=== PATIENT | female | born 1990 | race Caucasian/White ===

== ENCOUNTER 2018-10-06 20:01 | Inpatient (IN) ==
[2018-10-06] MEDS ORDERED: fentaNYL Citrate Inj 100 MCG/2 ML Ampul IV.PUSH PRN ×4 (20:48→20:50)
[2018-10-06] MEDS ORDERED: Sod Chloride 0.9% Inj 1,000 ML IV.CONT PRN ×2 (20:48→20:50)
[2018-10-06] MEDS ORDERED: Sodium Chlor 0.9% Inj 500 ML IV.SIG PRN ×2 (20:48→20:50)
[2018-10-06] MEDS ORDERED: Naloxone Inj 0.4 MG/ML Vial IV.PUSH PRN ×2 (20:48→20:50)
--- NOTE | 2018-10-06 20:48 | P.HPOB ---
History of Present Illness Service: Labor and delivery Primary Care Physician: NOT REQUIRED Chief Complaint: 37 EGA elevated BPs History of Present Illness: 28 yo swf at 37 0/7 weeks to L & D after told to come in for induction by Dr. peterson. BP in office elevated. Told protein in urine. Has had several [facility] evaluations for this Labs historically normal. Checked on admission and arom clear. BP pending No PTL, GDM. History of BPD placed on ability and zoloft this after reviewing risk/benefit ratio. GFM. surveilance in office has been reassuring. Much stress due to toxic FOB. GBS+ Weeks Gestation:: 37 Para: 0 - Inpatient Certification I certify that the inpatient services were ordered in accordance with Medicare regulations governing the order. This includes certification that hospital inpatient services are reasonable and necessary and in the case of services not specified as inpatient-only under 42 CFR 419.22(n), that they are appropriately provided as inpatient services in accordance to with the 2-midnight benchmark under 43 CFR 412.3(e) Estimated Total Length of Stay (Days): 3 Plans for Post Hospital Care: Home Review of Systems All other systems reviewed negative except as stated in HPI PMFSH - History History Provided By: Patient - Medical / Surgical Hx Neg / Unobtainable Medical Problems Denied: Yes - Social History I have reviewed the patient's Social History: Yes - Tobacco History Smoking Status: Never smoker Medications and Allergies Allergies Allergy/AdvReac Type Severity Reaction Status Date / Time No Known Allergies Allergy Unknown Uncoded 04/06/09 12:34 Exam - Constitutional mild distress - Routine HEENT Exam Head: Present: normocephalic Eye: Present: PERRL ENT: Present: mucous membranes moist - Routine Neck Exam Present: full ROM - Routine Respiratory Exam Present: CTA bilaterally - Routine Cardiovascular Exam Present: RRR - Routine Abdominal Exam Present: soft - Routine Exam Perineum Description: Intact - Routine Extremities Exam Present: edema - Routine Neurological Exam Present: alert, oriented X3 Caprini VTE Risk Assessment Caprini VTE Risk Assessment: No/Low Risk (score <= 1) Caprini Risk Assessment Model: Point Value = 1 Point Value = 2 Point Value = 3 Point Value = 5 Age 41-60 Minor surgery BMI > 25 kg/m2 Swollen legs Varicose veins or History of unexplained or recurrent spontaneous Oral contraceptives or hormone replacement Sepsis (< 1 month) Serious lung disease, including pneumonia (< 1 month) Abnormal pulmonary function Acute myocardial infarction Congestive heart failure (< 1 month) History of inflammatory bowel disease Medical patient at bed rest Age 61-74 Arthroscopic surgery Major open surgery (> 45 min) Laparoscopic surgery (> 45 min) Malignancy Confined to bed (> 72 hours) Immobilizing plaster cast Central venous access Age >= 75 History of VTE Family history of VTE Factor V Leiden Prothrombin [id number] Lupus anticoagulant Anticardiolipin antibodies Elevated serum homocysteine Heparin-induced thrombocytopenia Other congenital or acquired thrombophilia Stroke (< 1 month) Elective arthroplasty Hip, pelvis, or leg fracture Acute spinal cord injury (< 1 month) Prophylaxis Regimen: Total Risk Factor Score Risk Level Prophylaxis Regimen 0-1 Low Early ambulation 2 Moderate Order ONE of the following: *Sequential Compression Device (SCD) *Heparin 5000 units SQ BID 3-4 Higher Order ONE of the following medications: *Heparin 5000 units SQ TID *Enoxaparin/Lovenox 40 mg SQ daily (WT < 150 kg, CrCl > 30 mL/min) *Enoxaparin/Lovenox 30 mg SQ daily (WT < 150 kg, CrCl > 10-29 mL/min) *Enoxaparin/Lovenox 30 mg SQ BID (WT < 150 kg, CrCl > 30 mL/min) AND/OR *Sequential Compression Device (SCD) 5 or more Highest Order ONE of the following medications: *Heparin 5000 units SQ TID (Preferred with Epidurals) *Enoxaparin/Lovenox 40 mg SQ daily (WT < 150 kg, CrCl > 30 mL/min) *Enoxaparin/Lovenox 30 mg SQ daily (WT < 150 kg, CrCl > 10-29 mL/min) *Enoxaparin/Lovenox 30 mg SQ BID (WT < 150 kg, CrCl > 30 mL/min) AND *Sequential Compression Device (SCD) Assessment and Plan - Diagnosis (1) 37 weeks gestation of Code(s): Z3A.37 - 37 weeks gestation of Status: Acute (2) Pre-eclampsia Code(s): O14.90 - Unspecified pre-eclampsia, unspecified trimester Status: Acute - Plan evaluate for HELLP epidural and pitocin as needed anticipate
[2018-10-06] MEDS ORDERED: Oxytocin 30 Units/500ml Premix 30 UNITS/500 ML BAG IV.SIG PRN (20:49)
[2018-10-06] MEDS ORDERED: Oxytocin 30 Units/500ml Premix 30 UNITS/500 ML BAG IV.SIG ONE ×2 (20:50→21:15)
[2018-10-06] MEDS ORDERED: Citric Acid/Sodium Citrate Liq 30 ML UDC PO SCH ×2 (21:00)
[2018-10-06] MEDS ORDERED: Penicillin G Potassium Inj 5,000,000 UNIT in Sodium Chloride 0.9% Inj 100 ML IV.SIG ONE (21:15)
[2018-10-06] MEDS ORDERED: Lidocaine 1% Inj 50 ML Vial ONE (21:33)
[2018-10-06 21:49] LABS: Bacteria,Urine Occasional /hpf; Bilirubin,Urine Negative (Negative); Clarity,Urine Hazy (Clear); Color,Urine Yellow (Yellw/Straw); Glucose,Urine (UA) Negative (Negative); Leukocyte Esterase,Urine Small (Negative); Mucus,Urine Few /lpf (Occasional); Nitrite,Urine Negative (Negative); Specific Gravity,Urine 1.015 (1.002-1.035); Squamous Epithelial Cell,Urine 5 /hpf (0-5)
[2018-10-06 22:04] LABS: Baso % (Auto) 0.2 % (0.0-2.0); Eos # (Auto) 0.1 th/mm3 (0.0-0.4); Eos % (Auto) 0.7 % (0.0-4.0); Hematocrit 38.1 % (35.0-46.0); Hemoglobin 13.1 gm/dL (11.6-15.3); Lymph # (Auto) 2.7 th/mm3 (1.0-4.8); Lymph % (Auto) 17.7 % (9.0-44.0); Mean Corpuscular HGB Conc 34.3 % (32.0-36.0); Mean Corpuscular Hemoglobin 31.6 pg (27.0-34.0); Mean Corpuscular Volume 92.3 fL (80.0-100.0); Mean Platelet Volume 8.6 fL (7.0-11.0); Mono # (Auto) 1.1 th/mm3 (0.0-0.9); Mono % (Auto) 7.4 % (0.0-8.0); Neut # (Auto) 11.5 th/mm3 (1.8-7.7); Platelet Count 133 th/mm3 (150-450); Red Blood Count 4.13 mil/mm3 (4.00-5.30); Red Cell Distribution Width 12.8 % (11.6-17.2); White Blood Count 15.5 th/mm3 (4.0-11.0)
[2018-10-06] MEDS ORDERED: fentaNYL 2MCG-Bupiv 0.125% Epi 150 ML EPIDURAL ONE (22:28)
[2018-10-06] MEDS ORDERED: Lidocaine 2%/Epinephrine 1:200,000 PF 10 ML SDV ONE (22:33)
[2018-10-06] MEDS ORDERED: fentaNYL 2MCG-Bupiv 0.125% Epi 150 ML EPIDURAL PRN (23:10)
[2018-10-06] MEDS ORDERED: fentaNYL Citrate Inj 100 MCG/2 ML Ampul EPIDURAL ONE (23:10)
[2018-10-06 23:28] LABS: Amphetamine Urine With Conf Neg (Neg)
[2018-10-06 23:29] LABS: Benzodiazepine Urine With Conf Pos (Neg)
[2018-10-07] MEDS ORDERED: Penicillin G Potassium Inj 2,500,000 UNIT in Sodium Chlor 0.9% Inj 100 ML IV.SIG SCH (01:00)
--- NOTE | 2018-10-07 04:43 | P.OBDELI ---
Weeks Gestation: 37 Patient Started Active Labor: Yes Medical Induction of Labor: Yes Artificial Rupture of Membrane: Yes Anesthesia: Epidural Episiotomy: none Vaginal Delivery: Normal Presentation: Occiput anterior Nuchal Cord: None Delayed Cord Clamping (45 sec): Yes Placenta: Spontaneous delivery, Intact, 3 vessel cord, Cord pH Laceration: None Estimated blood loss (mL): 200 : Female Infant Female A Delivery Date: 10/07/18 Delivery Time: 04:43 score (1 min): 5 score (5 min): 7
[2018-10-07] MEDS ORDERED: Naloxone Inj 0.4 MG/ML Vial IV.PUSH PRN (04:44)
[2018-10-07] MEDS ORDERED: Zolpidem Tartrate 5 MG Tablet PO PRN (04:44)
[2018-10-07] MEDS ORDERED: Benzocaine 20% Top Spray 60 ML Can TOPICAL PRN (04:44)
[2018-10-07] MEDS ORDERED: Bisacodyl 10 MG Supp RECTAL PRN (04:44)
[2018-10-07] MEDS ORDERED: Acetaminophen 325 MG Tablet PO PRN (04:44)
[2018-10-07] MEDS ORDERED: Witch Hazel 50%/Glyderin 12.5% 40 Pad Jar RECTAL PRN (04:44)
[2018-10-07] MEDS ORDERED: Oxytocin 30 Units/500ml Premix 30 UNITS/500 ML BAG IV.CONT PRN (04:44)
[2018-10-07] MEDS: Prenatal Vit/Ca/Iron/Folic Acid Tablet PO SCH (09:13)
[2018-10-07] MEDS: Senna/Docusate Sodium 8.6/50 MG Tablet PO SCH ×2 (09:13→20:30)
[2018-10-07 10:15] LABS: Albumin 2.2 g/dL (3.4-5.0); Anion Gap 8 meq/L (5-15); Aspartate Aminotransferase 25 U/L (15-37); Blood Urea Nitrogen 7 mg/dL (7-18); Calcium 8.7 mg/dL (8.5-10.1); Carbon Dioxide 25.7 meq/L (21.0-32.0); Chloride 107 meq/L (98-107); Glomerular Filtration Rate 76 mL/min (>89); Glucose,Random 116 mg/dL (74-106); Potassium 3.4 meq/L (3.5-5.1); Sodium 141 meq/L (136-145)
[2018-10-07 10:16] LABS: Alanine Aminotransferase 16 U/L (10-53)
[2018-10-07 10:18] LABS: Alkaline Phosphatase 112 U/L (45-117); Total Protein 5.6 g/dL (6.4-8.2)
[2018-10-07] MEDS ORDERED: ALPRAZolam 0.25 MG Tablet PO PRN (11:46)
[2018-10-07] MEDS ORDERED: Measles/Mumps/Rubella Vaccine Inj 0.5 ML Vial SQ ONE (16:00)
[2018-10-07] MEDS ORDERED: Diphtheria/Tetanus/Pertussis Vaccine Inj 0.5 ML Syringe IM ONE (16:00)
[2018-10-07] MEDS: Sertraline 50 MG Tablet PO SCH (19:35)
[2018-10-07] MEDS: ARIPiprazole 5 MG Tablet PO SCH (19:35)
[2018-10-08] MEDS: Senna/Docusate Sodium 8.6/50 MG Tablet PO SCH ×2 (08:44→20:07)
[2018-10-08] MEDS: Prenatal Vit/Ca/Iron/Folic Acid Tablet PO SCH (08:44)
--- NOTE | 2018-10-08 11:06 | P.PNOB ---
Subjective Post day: 1 Interval history: PPD#1, s/p NVD 04:42 on 10/07/16. Doing well, Objective Vital Signs/I&O: Vital Signs 10/07/18 20:00 10/08/18 08:00 Temperature 98.2 F 97.8 F Pulse Rate 81 75 Respiratory Rate 18 20 Blood Pressure 129/76 138/83 Result Diagrams: 10/06/18 21:15 10/07/18 09:35 Objective Remarks: GENERAL: Well-nourished, well-developed patient. CARDIOVASCULAR: Regular rate and rhythm without murmurs, gallops, or rubs. RESPIRATORY: Breath sounds equal bilaterally. No accessory muscle use. ABDOMEN/GI: Abdomen soft, non-tender. Fundus: Firm, non-tender at umbilicus. GENITOURINARY: Light to moderate bleeding. EXTREMITIES: No cyanosis or edema, non-tender, without signs of DVT. Medications and IVs: Active Medications Acetaminophen (Tylenol) 650 mg PO Q4H PRN PRN Reason: PAIN SCALE 1 TO 2 Al Hydroxide/Mg Hydroxide (Milk Of Magnesia Liq) 30 ml PO Q12H PRN PRN Reason: Mild Constipation Alprazolam (Xanax) 0.25 mg PO Q4H PRN PRN Reason: ANXIETY Aripiprazole (Abilify) 5 mg PO DAILY@1999 [facility] [place] Last Admin: 10/07/18 19:35 Dose: 5 mg Benzocaine (Americaine 20% Top [place]) 1 spray TOPICAL Q4H PRN PRN Reason: For Perineum Discomfort Last Admin: 10/07/18 07:52 Dose: 1 spray Bisacodyl (Dulcolax Supp) 10 mg RECTAL DAILY PRN PRN Reason: SEVERE CONSITIPATION Calcium Carbonate (Tums Chew) 500 mg PO UNSCH PRN PRN Reason: INDIGESTION Last Admin: 10/07/18 16:14 Dose: 500 mg Citric Acid/Sodium Citrate (Sodium Citrate/Citric Acid Liq) 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 [facility] [place] Stop: 10/10/18 20:59 Fentanyl Citrate (Fentanyl Inj) 50 mcg IV.PUSH Q1H PRN PRN Reason: Pain Scale 3 - 5 Fentanyl Citrate (Fentanyl Inj) 100 mcg IV.PUSH Q1H PRN PRN Reason: PAIN SCALE 6 TO 10 Last Admin: 10/06/18 21:30 Dose: 100 mcg Lactated Ringer's (Lr 1000 Ml Inj) 1,000 mls @ 125 mls/hr IV.CONT .Q8H [facility] [place] Last Admin: 10/07/18 07:07 Dose: 125 mls/hr Lactated Ringer's (Lr 1000 Ml Inj) 1,000 mls @ 3,000 mls/hr IV.SIG UNSCH PRN PRN Reason: compromise or epidural Last Admin: 10/06/18 23:15 Dose: 3,000 mls/hr Sodium Chloride (Ns Inj) 500 mls @ 1,000 mls/hr IV.SIG UNSCH PRN PRN Reason: SEE LABEL COMMENTS Sodium Chloride (Ns Inj) 1,000 mls @ 100 mls/hr IV.CONT .Q10H PRN PRN Reason: SEE LABEL COMMENTS Oxytocin (Pitocin 30 Units/Ns 500 Ml Premix) 30 units in 500 mls @ 2 mls/hr IV.SIG TITRATE PRN; Protocol PRN Reason: For induction of labor Fentanyl/Bupivacaine/Sodium Chlor (Fentanyl 2 Mcg-Bupiv 0.125% Epi) 150 mls @ 12 mls/hr EPIDURAL PRN PRN PRN Reason: for Labor Pain Penicillin G Potassium 2,500, (000 unit/ Sodium Chloride) 100 mls @ 200 mls/hr IV.SIG Q4H [facility] [place] Last Admin: 10/07/18 01:10 Dose: 200 mls/hr Oxytocin (Pitocin 30 Units/Ns 500 Ml Premix) 30 units in 500 mls @ 100 mls/hr IV.CONT UNSCH PRN PRN Reason: Heavy bleeding Ibuprofen (Motrin) 800 mg PO Q8H PRN PRN Reason: For Cramping Last Admin: 10/08/18 08:44 Dose: 800 mg Lactulose (Lactulose Liq) 30 ml PO DAILY PRN PRN Reason: SEVERE CONSITIPATION Lidocaine HCl (Xylocaine 1% Inj) 0.1 ml I-DERMAL PRN PRN PRN Reason: For IV start Stop: 10/09/18 20:47 Lidocaine HCl (Xylocaine 1% Inj) 10 ml INFILTRATN PRN PRN PRN Reason: For episiotomy repair Stop: 10/08/18 20:47 Mineral Oil (Muri-Lube Oil) 10 ml TOPICAL PRN PRN PRN Reason: PRN perineal massage Naloxone HCl (Narcan Inj) 0.1 mg IV.PUSH Q2M PRN PRN Reason: for opiate reversal Naloxone HCl (Narcan Inj) 0.1 mg IV.PUSH Q2M PRN PRN Reason: for opiate reversal Ondansetron HCl (Zofran Odt) 4 mg PO Q6H PRN PRN Reason: NAUSEA OR VOMITING Vit/Calcium/Iron/Folic Ac (Stuartnatal Plus 3) 1 tab PO DAILY [facility] [place] Last Admin: 10/08/18 08:44 Dose: 1 tab Senna/Docusate Sodium (Sheree-Colace) 1 tab PO BID [facility] [place] Last Admin: 10/08/18 08:44 Dose: 1 tab Sennosides (Senokot) 17.2 mg PO Q12H PRN PRN Reason: Moderate Constipation Sertraline HCl (Zoloft) 50 mg PO DAILY@1999 [facility] [place] Last Admin: 10/07/18 19:35 Dose: 50 mg Sodium Chloride (Ns Flush) 2 ml IV.FLUSH BID [facility] [place] Last Admin: 10/08/18 08:44 Dose: Not Given Sodium Chloride (Ns Flush) 2 ml IV.FLUSH PRN PRN PRN Reason: FLUSH AFTER USING IV ACCESS Witch Leah/Glycerin (Tucks Pads) 1 applicatio RECTAL QID PRN PRN Reason: HEMORRHOIDS Last Admin: 10/07/18 07:52 Dose: 1 applicatio Zolpidem Tartrate (Ambien) 5 mg PO HS PRN PRN Reason: SLEEP Assessment and Plan - Diagnosis (1) 37 weeks gestation of Code(s): Z3A.37 - 37 weeks gestation of Status: Acute (2) Pre-eclampsia Code(s): O14.90 - Unspecified pre-eclampsia, unspecified trimester Status: Acute - Plan PPD#1, Doing well, stable, plan discharge for today. RTO in 1-2 weeks. Discharge Planning: today
[2018-10-08] MEDS ORDERED: Simethicone 125 MG Chew Tablet PO PRN (19:53)
[2018-10-08] MEDS: ARIPiprazole 5 MG Tablet PO SCH (20:07)
[2018-10-08] MEDS: Sertraline 50 MG Tablet PO SCH (20:07)
[2018-10-09 08:30] VITALS: BP 130/86; PULSE 89
[2018-10-09 08:31] VITALS: RESP 20; TEMP 98.9
--- NOTE | 2018-10-09 08:44 | P.PNOB ---
Subjective Post day: 2 Interval history: Doing well high anxiety no significant pain baby has tremors mom constipation Objective Vital Signs/I&O: Vital Signs 10/08/18 17:29 10/08/18 20:00 10/09/18 08:00 Temperature 98.1 F 98.5 F 98.9 F Pulse Rate 81 64 89 Respiratory Rate 17 18 20 Blood Pressure 130/86 130/76 130/86 Result Diagrams: 10/06/18 21:15 10/07/18 09:35 Objective Remarks: GENERAL: Well-nourished, well-developed patient. CARDIOVASCULAR: Regular rate and rhythm without murmurs, gallops, or rubs. RESPIRATORY: Breath sounds equal bilaterally. No accessory muscle use. ABDOMEN/GI: Abdomen soft, non-tender. Fundus: Firm, non-tender at umbilicus. GENITOURINARY: Light to moderate bleeding. EXTREMITIES: No cyanosis or edema, non-tender, without signs of DVT. Medications and IVs: Active Medications Acetaminophen (Tylenol) 650 mg PO Q4H PRN PRN Reason: PAIN SCALE 1 TO 2 Al Hydroxide/Mg Hydroxide (Milk Of Magnesia Liq) 30 ml PO Q12H PRN PRN Reason: Mild Constipation Last Admin: 10/08/18 17:12 Dose: 30 ml Alprazolam (Xanax) 0.25 mg PO Q4H PRN PRN Reason: ANXIETY Aripiprazole (Abilify) 5 mg PO DAILY@1999 [facility] Last Admin: 10/08/18 20:07 Dose: 5 mg Benzocaine (Americaine 20% Top [place]) 1 spray TOPICAL Q4H PRN PRN Reason: For Perineum Discomfort Last Admin: 10/07/18 07:52 Dose: 1 spray Bisacodyl (Dulcolax Supp) 10 mg RECTAL DAILY PRN PRN Reason: SEVERE CONSITIPATION Calcium Carbonate (Tums Chew) 500 mg PO UNSCH PRN PRN Reason: INDIGESTION Last Admin: 10/07/18 16:14 Dose: 500 mg Citric Acid/Sodium Citrate (Sodium Citrate/Citric Acid Liq) 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 [facility] Stop: 10/10/18 20:59 Fentanyl Citrate (Fentanyl Inj) 50 mcg IV.PUSH Q1H PRN PRN Reason: Pain Scale 3 - 5 Fentanyl Citrate (Fentanyl Inj) 100 mcg IV.PUSH Q1H PRN PRN Reason: PAIN SCALE 6 TO 10 Last Admin: 10/06/18 21:30 Dose: 100 mcg Lactated Ringer's (Lr 1000 Ml Inj) 1,000 mls @ 125 mls/hr IV.CONT .Q8H [facility] Last Admin: 10/07/18 07:07 Dose: 125 mls/hr Lactated Ringer's (Lr 1000 Ml Inj) 1,000 mls @ 3,000 mls/hr IV.SIG UNSCH PRN PRN Reason: compromise or epidural Last Admin: 10/06/18 23:15 Dose: 3,000 mls/hr Sodium Chloride (Ns Inj) 500 mls @ 1,000 mls/hr IV.SIG UNSCH PRN PRN Reason: SEE LABEL COMMENTS Sodium Chloride (Ns Inj) 1,000 mls @ 100 mls/hr IV.CONT .Q10H PRN PRN Reason: SEE LABEL COMMENTS Oxytocin (Pitocin 30 Units/Ns 500 Ml Premix) 30 units in 500 mls @ 2 mls/hr IV.SIG TITRATE PRN; Protocol PRN Reason: For induction of labor Fentanyl/Bupivacaine/Sodium Chlor (Fentanyl 2 Mcg-Bupiv 0.125% Epi) 150 mls @ 12 mls/hr EPIDURAL PRN PRN PRN Reason: for Labor Pain Penicillin G Potassium 2,500, (000 unit/ Sodium Chloride) 100 mls @ 200 mls/hr IV.SIG Q4H [facility] Last Admin: 10/07/18 01:10 Dose: 200 mls/hr Oxytocin (Pitocin 30 Units/Ns 500 Ml Premix) 30 units in 500 mls @ 100 mls/hr IV.CONT UNSCH PRN PRN Reason: Heavy bleeding Ibuprofen (Motrin) 800 mg PO Q8H PRN PRN Reason: For Cramping Last Admin: 10/08/18 17:11 Dose: 800 mg Lactulose (Lactulose Liq) 30 ml PO DAILY PRN PRN Reason: SEVERE CONSITIPATION Lidocaine HCl (Xylocaine 1% Inj) 0.1 ml I-DERMAL PRN PRN PRN Reason: For IV start Stop: 10/09/18 20:47 Mineral Oil (Muri-Lube Oil) 10 ml TOPICAL PRN PRN PRN Reason: PRN perineal massage Naloxone HCl (Narcan Inj) 0.1 mg IV.PUSH Q2M PRN PRN Reason: for opiate reversal Naloxone HCl (Narcan Inj) 0.1 mg IV.PUSH Q2M PRN PRN Reason: for opiate reversal Ondansetron HCl (Zofran Odt) 4 mg PO Q6H PRN PRN Reason: NAUSEA OR VOMITING Vit/Calcium/Iron/Folic Ac (Stuartnatal Plus 3) 1 tab PO DAILY [facility] Last Admin: 10/08/18 08:44 Dose: 1 tab Senna/Docusate Sodium (Sheree-Colace) 1 tab PO BID [facility] Last Admin: 10/08/18 20:07 Dose: 1 tab Sennosides (Senokot) 17.2 mg PO Q12H PRN PRN Reason: Moderate Constipation Sertraline HCl (Zoloft) 50 mg PO DAILY@1999 [facility] Last Admin: 10/08/18 20:07 Dose: 50 mg Simethicone (Phazyme Chew) 125 mg PO QID PRN PRN Reason: GAS PAINS Last Admin: 10/08/18 20:07 Dose: 125 mg Sodium Chloride (Ns Flush) 2 ml IV.FLUSH BID [facility] Last Admin: 10/08/18 22:56 Dose: Not Given Sodium Chloride (Ns Flush) 2 ml IV.FLUSH PRN PRN PRN Reason: FLUSH AFTER USING IV ACCESS Witch Leah/Glycerin (Tucks Pads) 1 applicatio RECTAL QID PRN PRN Reason: HEMORRHOIDS Last Admin: 10/07/18 07:52 Dose: 1 applicatio Zolpidem Tartrate (Ambien) 5 mg PO HS PRN PRN Reason: SLEEP Assessment and Plan - Diagnosis (1) 37 weeks gestation of Code(s): Z3A.37 - 37 weeks gestation of Status: Acute (2) Pre-eclampsia Code(s): O14.90 - Unspecified pre-eclampsia, unspecified trimester Status: Acute - Plan PPD#1, Doing well, stable, plan discharge for today. RTO in 1-2 weeks. PPD #2 doing well home today counseled in depth RTO 1 week Discharge Planning: today
[2018-10-09] MEDS: Prenatal Vit/Ca/Iron/Folic Acid Tablet PO SCH (09:01)
[2018-10-09] MEDS: Senna/Docusate Sodium 8.6/50 MG Tablet PO SCH (09:01)
== END 2018-10-09 11:55 | disposition home or self-care (01) ==
LOC: H2E 20:01 → H1EA 10-07 06:35
PROVIDERS: ADMIT Obstetrics & Gynecology; ATTEND Obstetrics & Gynecology

== ENCOUNTER 2018-11-26 13:57 | Inpatient (IN) ==
[2018-11-26 15:38] LABS: Baso % (Auto) 0.5 % (0.0-2.0); Eos # (Auto) 0.1 th/mm3 (0.0-0.4); Eos % (Auto) 1.4 % (0.0-4.0); Hematocrit 41.5 % (35.0-46.0); Hemoglobin 14.7 gm/dL (11.6-15.3); Lymph # (Auto) 2.8 th/mm3 (1.0-4.8); Lymph % (Auto) 41.1 % (9.0-44.0); Mean Corpuscular HGB Conc 35.3 % (32.0-36.0); Mean Corpuscular Hemoglobin 32.1 pg (27.0-34.0); Mean Platelet Volume 7.3 fL (7.0-11.0); Mono # (Auto) 0.5 th/mm3 (0.0-0.9); Mono % (Auto) 7.5 % (0.0-8.0); Neut # (Auto) 3.3 th/mm3 (1.8-7.7); Neut % (Auto) 49.5 % (16.0-70.0); Platelet Count 207 th/mm3 (150-450); Red Blood Count 4.56 mil/mm3 (4.00-5.30); Red Cell Distribution Width 12.5 % (11.6-17.2); White Blood Count 6.7 th/mm3 (4.0-11.0)
[2018-11-26] MEDS ORDERED: Azithromycin Powder 1 GM Packet PO ONE (16:00)
[2018-11-26 16:08] LABS: Albumin 3.9 g/dL (3.4-5.0)
[2018-11-26 16:17] LABS: Thyroid Stimulating Hormone 1.29 uIU/mL (0.358-3.740); Total Protein 7.6 g/dL (6.4-8.2)
[2018-11-26 17:59] LABS: Amorphous Sediment,Urine Rare /hpf; Bacteria,Urine Rare /hpf; Bilirubin,Urine Negative (Negative); Clarity,Urine Hazy (Clear); Color,Urine Yellow (Yellw/Straw); Glucose,Urine (UA) Negative (Negative); Leukocyte Esterase,Urine Moderate (Negative); Mucus,Urine Few /lpf (Occasional); Nitrite,Urine Negative (Negative); Specific Gravity,Urine 1.017 (1.002-1.035); Squamous Epithelial Cell,Urine 5 /hpf (0-5)
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
[2018-11-26] MEDS: clonazePAM 0.5 MG Tablet PO SCH (19:45)
[2018-11-26] MEDS: Prenatal Vit/Ca/Iron/Folic Acid Tablet PO SCH (19:58)
[2018-11-26] MEDS: amLODIPine 5 MG Tablet PO SCH (21:37)
--- NOTE | 2018-11-27 08:09 | P.OBGPN ---
S--Slept quietly through night. States was exhausted and did not have trouble O- normotensive--blood pressure in office was likely due to emotional stress still profoundly sad in affect A- elevated blood pressure resolved profound depression and despondency of issue antibiotic IV for chlamydia since po not tolerated P await psych evaluation
[2018-11-27] MEDS: amLODIPine 5 MG Tablet PO SCH ×2 (08:14→21:01)
[2018-11-27] MEDS: Prenatal Vit/Ca/Iron/Folic Acid Tablet PO SCH (08:14)
[2018-11-27] MEDS: clonazePAM 0.5 MG Tablet PO SCH ×3 (08:14→17:40)
[2018-11-27] MEDS ORDERED: BREXPIPRAZOLE 2 MG PO SCH (09:00)
--- NOTE | 2018-11-27 10:44 | P.CONPSY ---
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 The patient gives a history of significant mood swings since the age of 14. She reports spending most of her adult life feeling depressed with only momentary increases in her mood. She reports last feeling emotionally stabilized prior to her when her outpatient medication regimen included Rexulti, Trileptal and Xanax. Patient reports that during the she was prescribed Abilify and Zoloft at low doses and she expressed unsatisfactory control of her depression. She reports that depression significantly worsened over the past month in association with a close friend of hers committed suicide. The patient reports "it really scared me because I thought I was more depressed than him The only reason I do not commit suicide is because I do not want to hurt my family and friends." Collateral from the patient's mother indicates that the patient's mood became worse again when her boyfriend moved to [place] to be there when the baby was born. The patient admits that her relationship with boyfriend is "toxic" and she is determined to no longer engage in an intimate relationship with him. As for her depression, the patient endorses a lack of restful sleep, reduced interest and motivation, increased feelings of helplessness and hopelessness, decreased energy, decreased concentration, increased episodes of agitation and irritability, and passive thoughts that she would be better off . She denies any plan or intent to harm herself or others. As for her anxiety, the patient endorses chronic excessive worries that are difficult to control and are worse at night but have also become more intense since she became a mother. Patient also associates her anxiety with worsening irritability. As for her raphael, the patient reports that the last time she felt manic was immediately and it only lasted 2 days. She describes her raphael as "extreme highs, impulsive behaviors, a decreased need for sleep--down to 2 hours a night--and it can last hours to days." Past psychiatric history: Past Diagnoses: Bipolar disorder diagnosed since age of 14, generalized anxiety disorder also diagnosed Hospitalizations: Patient reports 4 past psychiatric hospitalizations the first at the age of 15 in the last the age of 24. Suicidal behavior: The patient denies any past suicide attempts or self- injurious behaviors. She does admit to intermittent passive thoughts that she would be better off . Past psychotropic medication trials: Past medication trials include Abilify and Zoloft combination which she reports was ineffective, Trileptal 1200 mg a day, Rexulti 4 mg a day, Ambien up to 10 mg at bedtime as needed, Xanax up to 1 mg twice a day for anxiety, Lexapro of unknown dose. Patient's current meds in the hospital include Klonopin 0.5 mg 3 times a day and a Rexulti 2 mg a day. Outpatient MH treatment: The patient has pending appointments with [facility] for December 11. Patient also has an appointment with vocational rehab. Patient reports that she was followed consistently by psychiatry for 3 years when she was living in [place] from [id number]. Substance Use Treatment: None Abuse/assault history: Denies Family psychiatric history: Patient denies a family history of suicide but a very close friend of hers by suicide just last month. Psychosocial history: Patient was born and raised in the local area. Her parents at the age of 4 and she was raised mostly by her mother and with one older brother. Patient reports that she was kicked out of her mother' s home at the age of 17 for using marijuana and having recurrent conflicts with the mother. Patient moved into her father's place in [place] where she eventually graduated high school. Patient then attended a community college in [place] and earned an associates degree in [employer] security. 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 Patient was once at the age of 25 to [employer] who moved her to [place]. She reports divorce is pending but they did not stay together long. Patient is currently dating another marine she met in [place] and they just had her first and only child. The patient does report having 1 prior in 2012. Patient reports that she was taking care of her father at the time and came home one day from work and found that he was . She reports severe distress and ended up losing her 1 week later. The patient acknowledges that she has not had an opportunity to process her grief and loss in therapy. As for legal history, the patient denies any history of arrests or probation. Substance Use history: Tobacco use: None Alcohol use: Patient likes to drink a small glass of wine 3-4 nights per week. She denies any excessive alcohol use. Cannabis use: She reports using cannabis intermittently as a teenager but none as an adult. Stimulant use: Denies Opiate use: Denies opiate misuse. Prescription drug abuse: Denies PMFSH - History History Provided By: Patient - Tobacco History Second Hand Smoke Exposure: No Tobacco Use In Past 30 Days: No Smoking Status: Former smoker Tobacco Type: Cigarettes - Alcohol History How Often Do You Have a Drink Containing Alcohol: 2 to 3 times a week - Substance Use History Substance History: No History of Abuse - Travel History Recent Travel in the USA Within the Last 8 Weeks: No Recent Travel Out of the Country Within the Last 8 Weeks: No - Immunization History Tetanus Immunization: <5 Years Tetanus Immunization Year if Known: 2017 Hx Influenza Vaccine This Season: Yes Medications and Allergies Active Medications: Active Medications Amlodipine Besylate (Norvasc) 5 mg PO BID [facility] Last Admin: 11/27/18 08:14 Dose: Not Given Clonazepam (Klonopin) 0.5 mg PO TID [facility] Last Admin: 11/27/18 08:14 Dose: 0.5 mg Lactated Ringer's (Lr 1000 Ml Inj) 1,000 mls @ 125 mls/hr IV.SIG .Q8H [facility] Last Admin: 11/27/18 07:55 Dose: 125 mls/hr Azithromycin 500 mg/ Sodium (Chloride) 250 mls @ 250 mls/hr IV.SIG Q24H [facility] Ondansetron HCl (Zofran Odt) 4 mg PO Q6H PRN PRN Reason: NAUSEA OR VOMITING Last Admin: 11/26/18 18:16 Dose: 4 mg Pt Own ( Brexpiprazole [ Rexulti] 2 Mg) Tab 1 each PO DAILY [facility] Vit/Calcium/Iron/Folic Ac (Stuartnatal Plus 3) 1 tab PO DAILY [facility] Last Admin: 11/27/18 08:14 Dose: 1 tab Allergies Allergy/AdvReac Type Severity Reaction Status Date / Time No Known Allergies Allergy Verified 10/06/18 20:57 Home Medications Medication Instructions Recorded Confirmed Type PNV #91-tywq-rqlhn acid-omega3 1 tab PO DAILY 10/06/18 11/26/18 History folic acid 800 mcg PO DAILY 10/06/18 11/26/18 History ranitidine HCl [Zantac] 300 mg PO BID PRN 10/06/18 11/26/18 History brexpiprazole [Rexulti] 2 mg DAILY 11/26/18 11/26/18 History clonazepam 0.5 mg TID 11/26/18 11/26/18 History fenugreek seed extract 610 mg DAILY 11/26/18 11/26/18 History oxcarbazepine 600 mg DAILY 11/26/18 11/26/18 History yeast [Astudillo's Yeast] 1,000 mg DAILY 11/26/18 11/26/18 History Exam Vital signs: Vital Signs 11/26/18 15:03 11/26/18 19:57 11/26/18 21:10 Temperature 97.8 F 97.9 F Pulse Rate 90 91 H 79 Respiratory Rate 18 18 Blood Pressure 118/74 108/67 106/92 H Pulse Oximetry 11/26/18 23:59 11/27/18 04:25 11/27/18 07:49 Temperature 98.1 F 97.6 F 98.0 F Pulse Rate 74 68 72 Respiratory Rate 18 18 18 Blood Pressure 114/72 113/72 120/65 Pulse Oximetry 95 Intake & Output 11/26/18 11/27/18 11/27/18 18:59 06:59 18:59 Intake Total 1000 / 1000 1000 / 1000 Output Total 800 / 800 Balance 200 / 200 1000 / 1000 Weight 88.313 kg Intake: IV 1000 / 1000 1000 / 1000 LR 1000 mL Inj 1,000 ML @ 125 1000 / 1000 1000 / 1000 mls/hr IV.SIG .Q8H [facility] Rx#: [id number] Output: Urine 800 / 800 Other: # Voids 1 Weight On Admission 88.3 kg Mental Status Examination Appearance: Appropriate Consciousness: Alert Orientation: x4 Motor Activity: Normal gait Speech: Unremarkable Language: Adequate Fund of Knowledge: Adequate Attention and Concentration: Adequate Memory: Unremarkable Mood: Sad, Anxious Affect: Appropriate Thought Process & Associations: Intact Thought Content: Appropriate Hallucination Type: None Delusion Type: None Suicidal Ideation: No Suicidal Plan: No Suicidal Intention: No Homicidal Ideation: No Homicidal Plan: No Homicidal Intention: No Insight: Fair Judgment: Impulsive Assessment and Plan - Assessment (1) Bipolar disorder current episode depressed Code(s): F31.30 - Bipolar disorder, current episode depressed, mild or moderate severity, unspecified Status: Acute (2) Generalized anxiety disorder Code(s): F41.1 - Generalized anxiety disorder Status: Acute - Plan Plan: Recommendations: 1. Continue Klonopin 0.5 mg 3 times a day for treatment of anxiety and bipolar disorder. Anticipate tapering off of this dose and perhaps this medication if she experiences a good response to alternatives for anxiety. 2. Decrease Rexulti to 1 mg/day x 1 week then discontinue. 3. Continue Ambien 5 mg at bedtime as needed for insomnia. 4. Start Cymbalta 30 mg every morning for treatment of depression and generalized anxiety. Anticipate titration to 60 mg within 4-7 days if tolerated. 5. Start buspirone 10 mg 3 times a day for treatment of generalized anxiety disorder and adjunctive treatment of depression. 6. Restart Trileptal 300 mg twice a day for 3 days then increase to 600 mg twice a day for bipolar disorder. 7. Discharge planning: The patient has been referred to [facility] for psychiatric care and has an appointment on December 11 however she would also benefit from weekly psychotherapy but the waiting list at [facility] is over 3 months. Recommend that patient seek private counseling in the community; information for options in the area will be provided prior to discharge. 8. Psychiatric polymer materials consultant will continue to follow while patient is admitted to [facility]. Justification for Continued Inpatient Stay: 28-year-old female with history of bipolar disorder but also history of chronic anxiety that has worsened in the period and contributed to a decline in mood. The patient's current psychotropic treatment consists of 3 mood stabilizers, 1 of which is Klonopin and also an anxiolytic. The patient has not had any trials of treatment with SNRIs and after discussion of the risks benefits side effects and alternatives, she chooses to start Cymbalta for treatment of her depression and generalized anxiety symptoms as well as starting buspirone for adjunctive treatment of mood and anxiety. The patient's risk of worsening mood swings due to the start of an antidepressant and a serotonergic medication, should be offset by the continue treatment with therapeutic dose of Trileptal and the temporary use of Rexulti. (1) Bipolar disorder current episode depressed Qualifiers: Current episode severity: moderate Qualified Code(s): F31.32 - Bipolar disorder, current episode depressed, moderate
[2018-11-27] MEDS: OXcarbazepine 300 MG Tablet PO SCH ×2 (15:00→21:01)
[2018-11-27] MEDS ORDERED: Azithromycin Inj 500 MG in Sodium Chlor 0.9% Inj 250 ML IV.SIG SCH (16:00)
[2018-11-27] MEDS: Acetaminophen 325 MG Tablet PO PRN ×2 (16:01→21:00)
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
[2018-11-28 08:36] VITALS: RESP 18; O2SAT 95
--- NOTE | 2018-11-28 09:06 | P.OBGPN ---
Planning to see Chastity later in the morning or early afternoon. Stopping IV fluids, antibiotics and norvasc today. It is important to relay to Dr. Becerril that Chastity believes she is . She had frequent intercourse from two to seven weeks post with the baby' s father, despite his volatile and erratic behavior. She developed chlamydia and was just treated. She has been taking tests which initially were slightly elevated due to the recent . A quantitative beta was ordered for today. She will not consider control until she has a menses just in case she is , because she does not want to harm this baby. She states it took years to get over the termination of her at the time of her father's . I noted that Dr. Becerril's note suggests she described that as a loss and not an active termination, but she refers to the event often and states she cannot terminate another . She has already told the baby's father that she may again be and states he has told her he would want nothing to do with another baby, to which she has responded that he will then have nothing to do with the Maribell. Chastity's parents fear she will is actively seeking and will continue to do so with this toxic young man in an effort to hold on to him. She told me last night that with her third chlamydia infection, she has realized she can never be with this man and does not intend to return to him. But she states she can't keep him out of [place], her daughter's life. THe concern is that she will resume relations despite her current resolve She declines contraception at this point. Beta is pending. This seems to be self destructive thinking and behavior but not of the degree that requires a Gonzalez Act. How best to proceed?
[2018-11-28] MEDS: Prenatal Vit/Ca/Iron/Folic Acid Tablet PO SCH (09:32)
[2018-11-28] MEDS: OXcarbazepine 300 MG Tablet PO SCH (09:32)
[2018-11-28] MEDS: clonazePAM 0.5 MG Tablet PO SCH ×2 (09:32→14:26)
[2018-11-28] MEDS: Acetaminophen 325 MG Tablet PO PRN (09:34)
[2018-11-28 12:00] VITALS: BP 109/74; PULSE 88; TEMP 98
--- NOTE | 2018-11-28 12:23 | P.PNPSY ---
Subjective Chief Complaint: Follow-up for depression and anxiety Remarks: Patient was seen at bedside this morning, accompanied by her mother and her daughter. Patient's affect was cheerful and she reports she feels happy to be holding her daughter. She has tolerated the dosage changes to her medications and the new medications. She reports decreased anxiety with new medication regimen and she described an incident in which she was able to cope well with a visit by her daughter's father. She denies suicidal or homicidal ideations she denies auditory visual hallucinations. She does report restless sleep due to racing worries about her daughter. She was asked about confidence with discharging home she expressed anxiety about how she is going to cope with unannounced visits from her ex-boyfriend but she feels supported by family and friends. Patient remains motivated for outpatient psychotherapy in addition to her psychiatric follow-up and she was provided a list of outpatient clinics that provide sliding scale therapists. Mental Status Examination Appearance: Appropriate Consciousness: Alert Orientation: x4 Motor Activity: Normal gait Speech: Unremarkable Language: Adequate Fund of Knowledge: Adequate Attention and Concentration: Adequate Memory: Unremarkable Mood: Sad Affect: Appropriate Thought Process & Associations: Intact Thought Content: Appropriate Hallucination Type: None Delusion Type: None Suicidal Ideation: No Suicidal Plan: No Suicidal Intention: No Homicidal Ideation: No Homicidal Plan: No Homicidal Intention: No Insight: Fair Judgment: Impulsive Assessment and Plan - Assessment (1) Bipolar disorder current episode depressed Code(s): F31.30 - Bipolar disorder, current episode depressed, mild or moderate severity, unspecified Status: Acute (2) Generalized anxiety disorder Code(s): F41.1 - Generalized anxiety disorder Status: Acute - Plan Plan: 11/27/2018 Initial recommendations: 1. Continue Klonopin 0.5 mg 3 times a day for treatment of anxiety and bipolar disorder. Anticipate tapering off of this dose and perhaps this medication if she experiences a good response to alternatives for anxiety. 2. Decrease Rexulti to 1 mg/day x 1 week then discontinue. 3. Continue Ambien 5 mg at bedtime as needed for insomnia. 4. Start Cymbalta 30 mg every morning for treatment of depression and generalized anxiety. Anticipate titration to 60 mg within 4-7 days if tolerated. 5. Start buspirone 10 mg 3 times a day for treatment of generalized anxiety disorder and adjunctive treatment of depression. 6. Restart Trileptal 300 mg twice a day for 3 days then increase to 600 mg twice a day for bipolar disorder. 7. Discharge planning: The patient has been referred to [facility] for psychiatric care and has an appointment on December 11 however she would also benefit from weekly psychotherapy but the waiting list at [facility] is over 3 months. Recommend that patient seek private counseling in the community; information for options in the area will be provided prior to discharge. 8. Psychiatric medical record consultant will continue to follow while patient is admitted to [facility]. 11/28/2018: Fair initial response to treatment recommendations; the patient is reporting improved anxiety and improved elevation and hope for the future. She continues to struggle with relationship conflicts with her daughter's father but is motivated to address current as well as past conflicts and loss in psychotherapy. Recommendations: 1. Continue medication regimen as documented above. The patient's Trileptal can be increased to 600 mg twice a day sooner than originally noted because patient had actually already started the Trileptal at 1200 mg a day prior to this admission. 2. The patient is to follow-up with [facility] as scheduled on December 11 for continued psychiatric medication management. 3. Patient was provided contact information for local counseling centers but are available on sliding scale, and it is recommended that she seek weekly counseling as soon as possible. 4. Safety planning discussed with patient and involved her mother; patient agrees to return to the hospital or call 911 should condition worsen suicidal ideations develop. Patient understands that a rapid elevation in mood could be dangerous and she should contact her outpatient mental health providers or return to the ER if such elevation in mood occurs. Thank you for the opportunity to participate in the care of Ms. Heller during this admission. Justification for Continued Inpatient Stay: Not applicable (1) Bipolar disorder current episode depressed Qualifiers: Current episode severity: moderate Qualified Code(s): F31.32 - Bipolar disorder, current episode depressed, moderate
--- NOTE | 2018-11-28 14:27 | P.OBGPN ---
Dr. Becerril's help appreciated. Home on current meds Recommend Restraining order for father of baby based on threatening texts and inappropriate demands ( having sex in early post period, etc.) I will see next week. Chastity will use the list of therapists provided by Dr. Becerril to begin twice weekly intensive outpatient management
== END 2018-11-28 15:16 | disposition home or self-care (01) | DRG 776 ==
LOC: H1EA
PROVIDERS: ADMIT Obstetrics & Gynecology; ATTEND Obstetrics & Gynecology
CPT/HCPCS: 80076; 80307; 81001; 84156; 84443; 84702; 85025; G0481; G0483; J0456; J7050; J7120